=== PATIENT | male | born 1935 | race Caucasian/White ===

== ENCOUNTER 2017-09-04 09:32 | Outpatient (CLI) | payer MEDICARE, BC | END 2017-09-04 23:59 | disposition home or self-care (01) | LOC: RAD 09:32 | PROVIDERS: ATTEND Specialist | DX: K80.20 Calculus of gallbladder without cholecystitis without obstruction (principal); E11.9 Type 2 diabetes mellitus without complications; E78.5 Hyperlipidemia, unspecified; Z87.891 Personal history of nicotine dependence | CPT/HCPCS: 76700 ==

== ENCOUNTER 2017-10-11 07:49 | Day surgery (SDC) | payer MEDICARE, BC ==
[~2017-10-11] VITALS: Ht 188 cm; Wt 85.6 kg
[2017-10-11] VITALS (14 sets, daily range): BP systolic 110–142; BP diastolic 68–88
[2017-10-11] MEDS ORDERED: normal saline 1000ml 1,000 ML IV SCH ×3 (08:25→10:23)
[2017-10-11] MEDS ORDERED: VIT1CAPS42 PO (08:30)
[2017-10-11] MEDS ORDERED: GLIM2TAB2 PO (08:30)
[2017-10-11] MEDS ORDERED: LISI-600 PO (08:30)
[2017-10-11] MEDS ORDERED: CANA300T PO (08:30)
[2017-10-11] MEDS ORDERED: SITA100T11 PO (08:30)
[2017-10-11] MEDS ORDERED: LEVO150T PO (08:30)
[2017-10-11] MEDS ORDERED: METF1000 PO (08:30)
[2017-10-11] MEDS ORDERED: MIDAZolam 5mg/5ml vial IV ONE (08:50)
[2017-10-11] MEDS ORDERED: fentaNYL/PF 50MCG/1 ML 2ML syringe IV ONE (08:50)
[2017-10-11 09:20] LABS: BASOPHILS % (AUTO) 0.2 % (0-1); EOSINOPHILS # (AUTO) 0.1 X10'3 (0-0.9); EOSINOPHILS % (AUTO) 0.8 % (0-6); HEMATOCRIT 36.2 % (42.0-52.0); HEMOGLOBIN 12.3 g/dl (14.0-17.9); LYMPHOCYTES # (AUTO) 0.7 X10'3 (1.1-4.8); LYMPHOCYTES % (AUTO) 6.2 % (21-51); MEAN CORPUSCULAR HEMOGLOBIN 31.6 PG (27.0-31.0); MEAN CORPUSCULAR VOLUME 92.8 FL (78-98); MEAN PLATELET VOLUME 9.4 FL (7.4-10.4); MONOCYTES # (AUTO) 0.7 X10'3 (0-0.9); MONOCYTES % (AUTO) 5.7 % (2-12); NEUTROPHILS # (AUTO) 10.4 X10'3 (1.8-7.7); NEUTROPHILS % (AUTO) 87.1 % (42-75); PLATELET COUNT 271 X10'3 (140-440); RED CELL DISTRIBUTION WIDTH 14.4 % (11.5-14.5)
[2017-10-11] MEDS ORDERED: fentaNYL/PF 50MCG/1 ML 2ML syringe IV PRN (09:55)
[2017-10-11] MEDS ORDERED: midazolam 2 mg/2 ml injection IV PRN (09:55)
[2017-10-11] MEDS ORDERED: midazolam 2 mg/2 ml injection ONE (10:19)
[2017-10-11] MEDS ORDERED: fentaNYL/PF 50MCG/1 ML 2ML syringe ONE (10:19)
[2017-10-11] MEDS ORDERED: LIDOcaine 1%/PF (10mg/ml) 5ml vial ONE (10:47)
== END 2017-10-11 15:35 | disposition home or self-care (01) ==
LOC: SSTAY O 07:49
PROVIDERS: ATTEND Radiology Diagnostic Radiology
DX: C22.7 Other specified carcinomas of liver (principal); E11.9 Type 2 diabetes mellitus without complications; I10 Essential (primary) hypertension; E03.9 Hypothyroidism, unspecified; E78.5 Hyperlipidemia, unspecified; Z79.84 Long term (current) use of oral hypoglycemic drugs; Z87.891 Personal history of nicotine dependence; Z90.89 Acquired absence of other organs; Z79.899 Other long term (current) drug therapy; Z98.890 Other specified postprocedural states; Z96.649 Presence of unspecified artificial hip joint
CPT/HCPCS: 36415; 47000; 76942; 85025; J2001; J2250; J3010; J7030